=== PATIENT | female | born 1955 | race Caucasian/White ===

== ENCOUNTER 2016-08-28 14:00 | Outpatient (RCR) | payer OTHER | END 2016-10-02 09:41 | disposition still patient (30) | LOC: WSPT 14:00 | DX: M54.5 Low back pain (principal) | CPT/HCPCS: G0283-GP; G8978-GP; G8979-GP; G8980-GP ==

== ENCOUNTER → 2018-01-05 | Outpatient (CLI) | payer OTHER | LOC: MC.RAD 10:20 | DX: Z12.31 Encounter for screening mammogram for malignant neoplasm of breast (principal) ==

== ENCOUNTER → 2019-09-27 | Outpatient (CLI) | payer OTHER | LOC: MC.RAD 08-02 10:15 | DX: Z12.31 Encounter for screening mammogram for malignant neoplasm of breast (principal) ==